=== PATIENT | male | born 1985 ===

== ENCOUNTER 2017-09-17 06:54 | Day surgery (SDC) | payer BC ==
[2017-09-17] MEDS ORDERED: Lactated Ringer's 1,000 ML IV ONE (10:10)
[2017-09-17] MEDS ORDERED: Propofol 10 mg/ml Inj (20 ML) ONE (10:41)
[2017-09-17 11:59] VITALS: TEMP 97.3
[2017-09-17 12:05] VITALS: PULSE 67; RESP 14
[2017-09-17 12:14] VITALS: BP 108/67; O2SAT 198
== END 2017-09-17 12:25 | disposition home or self-care (01) ==
LOC: C.ENDO 06:54
PROVIDERS: ATTEND Internal Medicine Gastroenterology
DX: R10.13 Epigastric pain (principal); K29.70 Gastritis, unspecified, without bleeding
CPT/HCPCS: 43239; 88305; J2704; J3010; J7120